=== PATIENT | male | born 1975 ===

== ENCOUNTER 2017-06-25 08:47 | Day surgery (SDC) | payer OTHER ==
[2017-06-23 08:41] VITALS: BP 127/88
[~2017-06-25] VITALS: Ht 185.4 cm; Wt 130.7 kg
[~2017-06-25 08:47] MED LIST: ACET-1600 PO; BUPIVACAINE/PF 0.5% ONE; IBUP200C8 PO
[2017-06-25] MEDS ORDERED: LIDOCAINE 1%, 2ML SQ PRN (09:00)
[2017-06-25] MEDS ORDERED: LACTATED RINGERS 1,000 ML IV SCH (09:00)
[2017-06-25] MEDS ORDERED: MIDAZOLAM 1 MG/ML, 2ML ONE (09:23)
[2017-06-25] MEDS ORDERED: LIDOCAINE-MPF 2% ,5ML ONE (09:26)
[2017-06-25] MEDS ORDERED: ROCURONIUM 10 MG/ML,10ML ONE (09:26)
[2017-06-25] MEDS ORDERED: PROPOFOL 10 MG/ML, 20ML ONE (09:26)
[2017-06-25] MEDS ORDERED: FENTANYL PF 100 MCG/2ML ONE ×3 (09:43→10:36)
[2017-06-25] MEDS ORDERED: CEFOTETAN PMX 2GM/50ML 50 ML ONE (09:45)
[2017-06-25] MEDS ORDERED: BUPIVACAINE/PF-EPI 0.5% 1:200K INFIL ONE (09:51)
[2017-06-25] MEDS ORDERED: ONDANSETRON 2MG/ML, 2ML ONE (09:58)
[2017-06-25] MEDS ORDERED: DEXAMETHASONE 4 MG/ML, 1ML ONE ×2 (09:58)
[2017-06-25] MEDS ORDERED: HYDROcodone/APAP 7.5-325MG/15ML UDC PO PRN (10:00)
[2017-06-25] MEDS ORDERED: ONDANSETRON 2MG/ML, 2ML IVPush PRN (10:00)
[2017-06-25] MEDS ORDERED: NEOSTIGMINE 1 MG/ML, 10ML ONE (10:03)
[2017-06-25] MEDS ORDERED: GLYCOPYRROLATE 0.2MG/1ML, 5ML ONE (10:03)
[2017-06-25] MEDS: morphine SULFATE 10 MG/ML, 1ML IV PRN ×2 (10:17→10:34)
[2017-06-25] MEDS: FENTANYL PF 100 MCG/2ML IV PRN ×3 (10:18→10:43)
[2017-06-25] MEDS ORDERED: morphine SULFATE 10 MG/ML, 1ML ONE (10:21)
[2017-06-25] MEDS ORDERED: HYDROcodone/APAP 7.5-325MG/15ML UDC ONE (10:22)
[2017-06-25] MEDS ORDERED: KETOROLAC 30 MG/1 ML ONE (10:36)
[2017-06-25] MEDS ORDERED: KETOROLAC 30 MG/1 ML IVPush ONE (11:00)
[2017-06-25] MEDS ORDERED: OXYcodone/APAP 5/325MG TABLET PO PRN (13:30)
== END 2017-06-25 14:10 | disposition home or self-care (01) ==
LOC: OUT 08:47
PROVIDERS: ATTEND Colon & Rectal Surgery
DX: K80.10 Calculus of gallbladder with chronic cholecystitis without obstruction (principal); Z83.3 Family history of diabetes mellitus; Z72.89 Other problems related to lifestyle; E66.01 Morbid (severe) obesity due to excess calories; Z68.38 Body mass index [BMI] 38.0-38.9, adult
CPT/HCPCS: 47562; 88304; A4649; J1100; J1885; J2250; J2270; J2405; J2704; J2710; J3010; J3490; J7120; S0074